=== PATIENT | female | born 1995 ===

== ENCOUNTER 2018-01-26 00:31 | Emergency (ER) | payer BC ==
[2018-01-26 01:35] VITALS: BP 110/72; PULSE 75; RESP 16; TEMP 98.5; O2SAT 100
--- NOTE | 2018-01-26 02:25 | ED PDOC ---
Lower Extremity Pain/Injury Time Seen by Provider: 01/26/18 02:10 Chief Complaint (Nursing): Lower Extremity Problem/Injury Chief Complaint (Provider): right foot pain History Per: Patient History/Exam Limitations: no limitations Onset/Duration Of Symptoms: Days (5) Current Symptoms Are (Timing): Still Present Additional Complaint(s): 22 y/o female presents for evaluation of right foot pain x 5 days. Patient states she was walking down the steps bare foot and when she got to the bottom her right foot twisted and she felt a few "Cracks". PAtient notes pain and swelling since then, for which she has been applying ice, but notes little improvement. Denies numbness/weakness right lower extremity, limitation of movement. - Hip Description Of Injury: Fell Past Medical History Reviewed: Historical Data, Nursing Documentation, Vital Signs Vital Signs: Last Vital Signs Temp 98.5 F 01/26/18 01:28 Pulse 75 01/26/18 01:28 Resp 16 01/26/18 01:28 BP 110/72 01/26/18 01:28 Pulse Ox 100 01/26/18 01:28 - Medical History PMH: No Chronic Diseases - Surgical History Surgical History: - Family History Family History: States: No Known Family Hx - Living Arrangements Living Arrangements: With Family - Home Medications Home Medications: Ambulatory Orders Medication Instructions Recorded Ibuprofen [Motrin Tab] 1 tab PO Q6 PRN #20 tab 01/26/18 - Allergies Allergies/Adverse Reactions: Allergies Allergy/AdvReac Type Severity Reaction Status Date / Time No Known Allergies Allergy Verified 01/26/18 01:35 Review of Systems ROS Statement: Except As Marked, All Systems Reviewed And Found Negative Musculoskeletal: Positive for: Foot Pain (right) Physical Exam - Reviewed Nursing Documentation Reviewed: Yes Vital Signs Reviewed: Yes - Physical Exam Appears: Positive for: Well, Non-toxic, No Acute Distress Head Exam: Positive for: ATRAUMATIC, NORMAL INSPECTION, NORMOCEPHALIC Skin: Positive for: Normal Color Pulses-Dorsalis Pedis (L): 2+ Pulses-Dorsalis Pedis (R): 2+ Pulses-Post. Tibialis (L): 2+ Pulses-Post. Tibialis (R): 2+ Extremity: Positive for: Normal ROM, Tenderness (right dorsal/lateral foot with + swelling/ecchymosis, tender to touch. FROM. Distal NV/motor intact) - ECG O2 Sat by Pulse Oximetry: 100 - Other Rad xray right foot X-Ray: Viewed By Me X-Ray Interpretation: ? fracture base 5th metatarsal - Progress ED Course And Treament: xray, ibuprofen Patient educated on findings, possible fx vs sprain. right foot wrapped in BERTA, surgical shoe given. Crutches given. Advised RICE. Follow up podiatry Return precautions given Disposition - Clinical Impression Clinical Impression: Foot fracture - Patient ED Disposition Is Patient to be Admitted: No Counseled Patient/Family Regarding: Studies Performed, Diagnosis, Need For Followup, Rx Given - Disposition Referrals: Podiatry Clinic [Outside] Disposition: Routine/Home Disposition Time: 03:13 Condition: IMPROVED Prescriptions: Ibuprofen [Motrin Tab] 1 tab PO Q6 PRN #20 tab PRN Reason: Pain, Moderate (4-7) Instructions: Foot Fracture (DC) Forms: [facility] [employer] [facility] ([place])
--- NOTE | 2018-01-26 09:54 | RAD ---
PROCEDURE: Right Foot Radiographs. HISTORY: fall, lateral pain COMPARISON: None. FINDINGS: BONES: No acute fracture. JOINTS: Unremarkable. SOFT TISSUES: Normal. OTHER FINDINGS: None. IMPRESSION: No demonstrated fracture or dislocation.
== END 2018-01-26 03:44 | disposition home or self-care (01) ==
LOC: H.ER 00:31
DX: S92.901A Unspecified fracture of right foot, initial encounter for closed fracture (principal); X50.9XXA Other and unspecified overexertion or strenuous movements or postures, initial encounter; Y92.89 Other specified places as the place of occurrence of the external cause